=== PATIENT | female | born 1955 | race Caucasian/White ===

== ENCOUNTER 2017-07-29 07:56 | Outpatient (CLI) | payer OTHER | END 2017-07-29 19:29 | disposition home or self-care (01) | LOC: SMA 07:56 | PROVIDERS: ATTEND Family Medicine | DX: Z12.31 Encounter for screening mammogram for malignant neoplasm of breast (principal) | CPT/HCPCS: 77067 ==

== ENCOUNTER 2020-08-17 10:05 | Outpatient (CLI) | payer BC | END 2020-08-17 18:37 | disposition home or self-care (01) | LOC: SMA 10:05 | DX: Z12.31 Encounter for screening mammogram for malignant neoplasm of breast (principal); N64.89 Other specified disorders of breast | CPT/HCPCS: 77067 ==